=== PATIENT | male | born 1995 | race Caucasian/White ===

== ENCOUNTER 2018-11-09 21:00 | Observation (INO) | payer OTHER ==
[2018-11-09] MEDS ORDERED: ONDANSETRON 4 MG/2 ML VIAL ONE (21:28)
[2018-11-09] MEDS ORDERED: ONDANSETRON 4 MG/2 ML VIAL IVP ONE (21:30)
[2018-11-09] MEDS ORDERED: NS 1,000 ML IV ONE (21:35)
[2018-11-09] MEDS ORDERED: MAG HYDROX/AL HYDROX/SIMETH 30 ML UDCUP PO ONE (21:35)
[2018-11-09] MEDS ORDERED: FAMOTIDINE 20 MG TAB PO ONE (21:35)
[2018-11-09] MEDS ORDERED: TAMSULOSIN HCL 0.4 MG CAP PO ONE (21:35)
[2018-11-09] MEDS ORDERED: LIDOCAINE 2% VISCOUS 15 ML UDCUP PO ONE (21:35)
[2018-11-09] MEDS ORDERED: HYOSCYAMINE SULFATE 0.125 MG TAB PO ONE (21:35)
[2018-11-09 21:48] LABS: PLATELET COUNT 306 10^3/uL (150-400)
--- NOTE | 2018-11-09 21:57 | EDPHY ---
H & P Stated Complaint: Epigastric pain, "i think it gets worse w/greasy food", constipaion Source: Patient Exam Limitations: No limitations - Personal History Current Tetanus Diphtheria and Acellular Pertussis (TDAP): Yes Tetanus Vaccine Date: 2014 - Medical/Surgical History Hx Asthma: No Hx Chronic Respiratory Disease: No Hx Diabetes: No Hx Cardiac Disease: No Hx Renal Disease: No Hx Cirrhosis: No Hx Alcoholism: No Hx HIV/AIDS: No Hx Splenectomy or Spleen Trauma: No Other PMH: Denies - Social History Smoking Status: Never smoked Time Seen by Provider: 11/09/18 21:32 HPI/ROS: HPI: This is a 23-year-old male who presents with Chief Complaint: Epigastric pain, "i think it gets worse w/greasy food", constipation Location: Epigastric Quality: Pain Duration: 2 weeks Signs and Symptoms: no fever, + nausea, + vomiting, no hematemesis, no blood in stool, no abdominal bloating, no diarrhea, no back pain, no urinary symptoms , no testicular/groin pain, no indigestion, no chest pain, no shortness of breath Timin-3 episodes Severity: Moderate Context: 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 Patient reports that he has not been able to have a bowel movement in several days. He denies any fever, urinary symptoms, back pain, diarrhea, blood in stool, hematemesis, testicular groin pain. He reports episodes of indigestion and pain is worsened with greasy foods. He denies regular alcohol or NSAID use. He does not believe that he is under any stress. Denies marijuana use. Modifying Factors: None Comment: ROS: A comprehensive 10 system review of systems is otherwise negative aside from elements mentioned in the history of present illness. MEDICAL/SURGICAL/SOCIAL HISTORY: Medical history: Generally healthy. Does not take any regular medications. Surgical history: Denies Social history: Never smoked. CONSTITUTIONAL: Overweight adult white male, awake and alert, no obvious distress HEENT: Atraumatic and normocephalic, PERRL, EOMI. Wears glasses. Nares patent ; no rhinorrhea; no nasal mucosal edema. Tympanic membranes clear. Oropharynx clear, no exudate and moist pink mucosa. Airway patent. No lymphadenopathy. No meningismus. Cardiovascular: Normal S1/S2, regular rate, regular rhythm, without murmur rub or gallop. PULMONARY/CHEST: Symmetrical and nontender. Clear to auscultation bilaterally. Good air movement. No accessory muscle usage. ABDOMEN: Soft, nondistended, moderate epigastric tenderness, mild right upper quadrant tenderness,, no rebound, no guarding, no peritoneal signs, no masses or organomegaly. No CVAT. Hypoactive bowel sounds x4 quadrants. EXTREMITIES: 2/2 pulses, strength 5/5, no deformities, no clubbing, no cyanosis or edema. NEUROLOGICAL: no focal neuro deficits. GCS 15. SKIN: Warm and dry, no erythema. no rash. Good capillary refill. (Hillary Ferrari) Constitutional: Initial Vital Signs Temperature (C) 37.1 C 11/09/18 21:04 Heart Rate 85 11/09/18 21:04 Respiratory Rate 17 11/09/18 21:04 Blood Pressure 164/111 H 11/09/18 21:04 O2 Sat (%) 96 11/09/18 21:04 O2 Delivery Mode Room Air Allergies/Adverse Reactions: No Known Allergies Allergy (Unverified 11/09/18 21:08) Home Medications: Medication Instructions Recorded NK [No Known Home Meds] 11/09/18 Medical Decision Making - Diagnostics Imaging Results: Imaging Impressions Abdomen Ultrasound 11/09/18 21:36 Impression: Consistent with mild cholecystitis and cholelithiasis. Results discussed with Hillary Ferrari at 23:00 PM. Abdomen X-Ray 11/09/18 21:36 Impression: Negative. ED Course/Re-evaluation: I did not see this patient while he was in the emergency department. However his care was discussed with the PA while the patient was in the department. I agree with treatment plan and management (Bib Torres) Vital signs reviewed and show elevated blood pressure upon arrival. 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 IV access, laboratory studies, abdominal ultrasound, KUB and medications ordered Patient given 1 L normal saline, IV Protonix 40 mg, IV Pepcid 20 mg, IV Zofran 4 mg and GI cocktail 2215: Labs reviewed. No signs of leukocytosis/anemia/platelet dysfunction/DUSTY/ elevated LFTs/electrolyte imbalance/pancreatitis. 2230: Abdominal x-ray my read shows right-sided constipation. No signs of obstruction/free air. Called by Radiology, Dr. Zamudio, who reports ultrasound shows fatty liver, no pancreatitis, gallbladder sludge with 1-2 stones, negative Parson's sign; findings are concerning for early cholecystitis and cholelithiasis. ED decision to consult General surgery. Spoke with Dr. Yao who kindly agrees to admit patient and take his gallbladder out in the morning. NPO status. Given IV Rocephin 2 g IV Flagyl 500 mg. This patient was seen under the supervision of my secondary supervising physician. I evaluated care for this patient independently. Discussed this patient with Dr. Torres who did not see the patient. (Hillary Ferrari) Differential Diagnosis: Abdominal pain including but not limited to appendicitis, cholecystitis, gastritis and urinary tract infection. (Hillary Ferrari) - Data Points Laboratory Results: Laboratory Results 11/09/18 21:24 11/09/18 21:24 11/09/18 11/09/18 21:24 21:24 WBC 7.69 10^3/uL 10^3/uL (3.80-9.50) RBC 5.80 10^6/uL 10^6/uL (4.40-6.38) Hgb 17.5 g/dL g/dL (13.7-17.5) Hct 51.9 % H % (40.0-51.0) MCV 89.5 fL fL (81.5-99.8) MCH 30.2 pg pg (27.9-34.1) MCHC 33.7 g/dL g/dL (32.4-36.7) RDW 12.3 % % (11.5-15.2) Plt Count 306 10^3/uL 10^3/uL (150-400) MPV 8.9 fL fL (8.7-11.7) Neut % (Auto) 66.3 % % (39.3-74.2) Lymph % (Auto) 25.1 % % (15.0-45.0) [place] % (Auto) 6.6 % % (4.5-13.0) Eos % (Auto) 1.0 % % (0.6-7.6) Baso % (Auto) 0.7 % % (0.3-1.7) Nucleat RBC Rel Count 0.0 % % (0.0-0.2) Absolute Neuts (auto) 5.10 10^3/uL 10^3/uL (1.70-6.50) Absolute Lymphs (auto) 1.93 10^3/uL 10^3/uL (1.00-3.00) Absolute Monos (auto) 0.51 10^3/uL 10^3/uL (0.30-0.80) Absolute Eos (auto) 0.08 10^3/uL 10^3/uL (0.03-0.40) Absolute Basos (auto) 0.05 10^3/uL 10^3/uL (0.02-0.10) Absolute Nucleated RBC 0.00 10^3/uL 10^3/uL (0-0.01) Immature Gran % 0.3 % % (0.0-1.1) Immature Gran # 0.02 10^3/uL 10^3/uL (0.00-0.10) Sodium 137 mEq/L mEq/L (135-145) Potassium 3.9 mEq/L mEq/L (3.5-5.2) Chloride 102 mEq/L mEq/L (97-110) Carbon Dioxide 25 mEq/l mEq/l (22-31) Anion Gap 10 mEq/L mEq/L (6-14) BUN 15 mg/dL mg/dL (7-23) Creatinine 1.0 mg/dL mg/dL (0.7-1.3) Estimated GFR > 60 Glucose 126 mg/dL H mg/dL (70-100) Calcium 11.8 mg/dL H mg/dL (8.5-10.4) Phosphorus 3.4 mg/dL mg/dL (2.5-4.5) Total Bilirubin 1.4 mg/dL mg/dL (0.1-1.4) Conjugated Bilirubin 0.5 mg/dL mg/dL (0.0-0.5) Unconjugated Bilirubin 0.9 mg/dL mg/dL (0.0-1.1) AST 36 IU/L IU/L (17-59) ALT 65 IU/L IU/L (21-72) Alkaline Phosphatase 124 IU/L IU/L (38-126) Total Protein 8.1 g/dL g/dL (6.3-8.2) Albumin 5.0 g/dL g/dL (3.5-5.0) Lipase 48 IU/L IU/L (23-300) Medications Given: Metronidazole/Sodium Chloride (Flagyl 500 Mg (Premix)) 100 mls @ 100 mls/hr IV EDNOW ONE PRN Reason: Protocol Stop: 11/10/18 00:09 Last Admin: 11/09/18 23:18 Dose: 100 mls Pantoprazole Sodium (Protonix) 40 mg IV ONCE ONE Stop: 11/10/18 21:36 Last Admin: 11/09/18 22:34 Dose: 40 mg Discontinued Medications Al Hydroxide/Mg Hydroxide (Maalox Susp) 30 ml PO ONCE ONE Stop: 11/09/18 21:36 Last Admin: 11/09/18 22:34 Dose: 30 ml Famotidine (Pepcid) 20 mg PO EDNOW ONE Stop: 11/09/18 21:36 Last Admin: 11/09/18 22:34 Dose: 20 mg Hyoscyamine Sulfate (Levsin, Hyomax-Sl) 0.25 mg PO ONCE ONE Stop: 11/09/18 21:36 Last Admin: 11/09/18 22:34 Dose: 0.25 mg Sodium Chloride (Ns) 1,000 mls @ 0 mls/hr IV EDNOW ONE; Wide Open PRN Reason: Protocol Stop: 11/09/18 21:36 Last Admin: 11/09/18 22:25 Dose: 1,000 mls Lidocaine (Lidocaine 2% Viscous) 15 ml PO ONCE ONE Stop: 11/09/18 21:36 Last Admin: 11/09/18 22:34 Dose: 15 ml Ondansetron HCl (Zofran) 4 mg IVP EDNOW ONE Stop: 11/09/18 21:31 Last Admin: 11/09/18 21:30 Dose: 4 mg Tamsulosin HCl (Flomax) 0.4 mg PO EDNOW ONE Stop: 11/09/18 21:36 Last Admin: 11/09/18 22:26 Dose: Not Given Departure - Departure Disposition: [facility] Acute Clinical Impression: Cholecystitis with cholelithiasis Condition: Fair
[2018-11-09] MEDS ORDERED: PANTOPRAZOLE SODIUM 40 MG VIAL ONE (22:21)
--- NOTE | 2018-11-09 23:51 | PDGENHP ---
History & Physical Chief Complaint: RUQ PAIN History of Present Illness: 2 WEEK HX OF EPIGASTRIC PAIN WITHGREASY FOOD. US SHOWS SLUDGE AND STONES/ LFTs OK/ NONICTERIC. RISKS AND OPTIONS FULLY DISCUSSED/ ADMIT FOR LAP JOHNNIE Pertinent Past, Social, Family History: PMH NO MAJOR PROBLEMS AND NO SURGERY. MEDS NONE. NKA. ROS - 10 PT REVIEW. SOC HX NONSMOKER. FAM HX NONCONTRIB EXCEPT FOR CHOLETHIASIS Relevant Physical Exam: GEN ALERT, HEALTHY 23 MALE, AFEBRILE. HEENT NONICTERIC , PERRLA, NO NODES. CHEST CLEAR. COR RR, NO M. ABD SOFT, MILDLY TENDER RUQ, NO MASSES. GEN OK, NO HERNIAS. EXTREM OK. NEURO PHYSIOLOGIC. PSYCH ALERT, ORIENTED, COOPERATIVE Cardiorespiratory Assessment: IMP: CHOLETHIASIS, POSSIBLE CHOLECYSTITIS. PLAN: ADMIT FOR LAP JOHNNIE
[2018-11-10] MEDS ORDERED: LORazepam 2 MG/ML INJ IVP PRN (00:01)
[2018-11-10] MEDS ORDERED: ONDANSETRON 4 MG/2 ML VIAL IVP PRN ×2 (00:01→14:37)
[2018-11-10] MEDS: D5W 1/2 NS W/ 20 KCl/L 1,000 ML IV SCH ×3 (00:57→23:27)
[2018-11-10] MEDS: HYDROmorphONE/DILAUDID 1 MG/ML INJ IVP PRN ×4 (01:27→23:01)
[2018-11-10 08:05] LABS: PLATELET COUNT 288 10^3/uL (150-400)
[2018-11-10] MEDS ORDERED: LR 1,000 ML IV ONE (12:09)
[2018-11-10] MEDS ORDERED: BUPIVACAINE 0.5% 30 ML SDV ONE (13:55)
[2018-11-10] MEDS ORDERED: ceFAZolin 1 GM/5 ML SYR ONE (13:55)
[2018-11-10] MEDS ORDERED: HEPARIN 1000 UNIT/1 ML MDV ONE (13:55)
[2018-11-10] MEDS ORDERED: MIDAZOLAM 2 MG/2 ML VIAL IVP ONE (14:34)
[2018-11-10] MEDS ORDERED: ACETAMINOPHEN 500 MG TAB PO PRN (14:37)
[2018-11-10] MEDS ORDERED: PROMETHAZINE HCL 25 MG/ML INJ IVP PRN (14:37)
[2018-11-10] MEDS ORDERED: fentaNYL 100 MCG/2 ML INJ IVP PRN (14:37)
[2018-11-10] MEDS ORDERED: HYDROmorphONE/DILAUDID 2 MG/ML INJ IVP PRN (14:37)
[2018-11-10] MEDS ORDERED: PHENYLEPHRINE HCL 100 MCG/ML SYR IVP PRN (14:37)
[2018-11-10] MEDS ORDERED: LR 500 ML IV PRN (14:37)
[2018-11-10] MEDS ORDERED: oxyCODONE IR 5 MG TAB PO PRN (14:37)
[2018-11-10] MEDS ORDERED: HYDROCODONE/APAP 5/325 TAB PO PRN (14:37)
[2018-11-10] MEDS ORDERED: NALOXONE HCL 0.4 MG/ML INJ IVP PRN (14:37)
--- NOTE | 2018-11-10 14:37 | PDANEPAE ---
ANE Past Medical History - Cardiovascular History Hx Hypertension: No Hx Arrhythmias: No Hx Chest Pain: No Hx Coronary Artery / Peripheral Vascular Disease: No Hx CHF / Valvular Disease: No Hx Palpitations: No - Pulmonary History Hx COPD: No Hx Asthma/Reactive Airway Disease: No Hx Recent Upper Respiratory Infection: No Hx Oxygen in Use at Home: No Hx Sleep Apnea: No Sleep Apnea Screening Result - Last Documented: Negative - Endocrine History Hx Diabetes: No Hypothyroid: No Hyperthyroid: No Obesity: no Endocrine History Comment: overweight - Surgical History Prior Surgeries: none ANE Review of Systems Review of Systems: - Exercise capacity Exercise capacity: >=4 METS - Systems Muscolosketal: Reports: neck pain ANE Patient History - Allergies Allergies/Adverse Reactions: No Known Allergies Allergy (Unverified 11/09/18 21:08) - Home Medications Home Medications: NK [No Known Home Meds] 11/09/18 [Last Taken Unknown] - NPO status NPO Since - Liquids (Date): 11/09/18 NPO Since - Liquids (Time): 17:00 NPO Since - Solids (Date): 11/09/18 NPO Since - Solids (Time): 11:00 - Anes Hx Hx Anesthesia Complications (with details): no prior h/o anesthesia - Smoking Hx Smoking Status: Never smoked - Alcohol Use Alcohol Use: Occasionally - Family Anes Hx Family Anes Hx: neg - N/A ANE Labs/Vital Signs - Labs Result Diagrams: 11/10/18 07:50 11/09/18 21:24 - Vital Signs Blood Pressure: 134/93 Heart Rate: 102 Respiratory Rate: 12 O2 Sat (%): 93 Height: 193 cm Weight: 108.86 kg ANE Physical Exam - Airway Neck exam: FROM Mallampati Score: Class 2 Mouth exam: normal dental/mouth exam - Pulmonary Pulmonary: no respiratory distress, no rales or rhonchi, clear to auscultation - Cardiovascular Cardiovascular: regular rate and rhythym, no murmur, rub, or gallop ANE Anesthesia Plan Anesthesia Plan: general endotracheal anesthesia Total IV Anesthesia: No
[2018-11-10] MEDS ORDERED: MIDAZOLAM 2 MG/2 ML VIAL ONE (14:47)
[2018-11-10] MEDS ORDERED: PROPOFOL 200 MG/20 ML VIAL ONE (14:50)
[2018-11-10] MEDS ORDERED: fentaNYL 100 MCG/2 ML INJ ONE (14:50)
[2018-11-10] MEDS ORDERED: REMIFENTANIL HCL 1 MG VIAL ONE (14:50)
[2018-11-10] MEDS ORDERED: ONDANSETRON 4 MG/2 ML VIAL ONE (14:51)
[2018-11-10] MEDS ORDERED: DEXAMETHASONE 4 MG/ML VIAL ONE (14:51)
[2018-11-10] MEDS ORDERED: PROPOFOL/EMULSION 500 MG/50 ML BOTTLE IV ONE (14:51)
[2018-11-10] MEDS ORDERED: ROCURONIUM 50 MG/5 ML VIAL ONE ×2 (14:52→15:44)
[2018-11-10] MEDS ORDERED: LIDOCAINE 2% 5 ML SDV ONE (14:53)
[2018-11-10] MEDS ORDERED: PHENYLEPHRINE HCL 100 MCG/ML SYR ONE ×2 (15:13→15:25)
[2018-11-10] MEDS ORDERED: SUGAMMADEX SODIUM 200 MG/2 ML VIAL IVP ONE (15:55)
[2018-11-10] MEDS ORDERED: KETOROLAC 30 MG/1 ML SDV ONE (15:55)
--- NOTE | 2018-11-10 16:44 | POSTANESTH ---
Post Anesthetic Evaluation Cardiovascular Status: Normal, Stable Respiratory Status: Normal, Stable Level of Consciousness/Mental Status: Can Participate in Eval Pain Control: Adequate, Prn Tx Ordered Nausea/Vomiting Control: Adequate, Prn Tx Ordered Complications Possibly Related to Anesthesia: None Noted
--- NOTE | 2018-11-10 17:41 | POSTOPPROG ---
Post Op Note Date of Operation: 11/10/18 Surgeon: Xander Yao Roof Fitter: Alysha Paige Anesthesiologist: Morris Nichole Anesthesia: GET(General Endotracheal) Pre-op Diagnosis: cholelithiasis, acute cholecystitis Post-op Diagnosis: same, with gangrenous gallbladder Procedure: lap jaden Findings: large stones, necrotic edematous GB c dark black bile Inf/Abcess present in the surg proc area at time of surgery?: Yes Depth: Organ Space EBL: 50-100 Complications: none Specimen(s): gallbladder to path and swab for culture
[2018-11-10] MEDS ORDERED: PANTOPRAZOLE SODIUM 40 MG VIAL IV ONE (21:35)
[2018-11-11] MEDS: HYDROmorphONE/DILAUDID 1 MG/ML INJ IVP PRN ×2 (00:58→03:46)
[2018-11-11] MEDS: D5W 1/2 NS W/ 20 KCl/L 1,000 ML IV SCH (07:21)
[2018-11-11] MEDS: OXYCODONE/APAP 5/325 TAB PO PRN ×2 (08:55→13:54)
--- NOTE | 2018-11-11 09:06 | SOAPPROG ---
SOAP Progress Note Assessment/Plan: Assessment/Plan: 23 Y M POD#1 s/p lap jaden. Acute gangrenous cholecystitis, cholelithiasis. Regular diet. Will plan to d/c to home later today p IV abx c oral abx if tolerates diet. Will need Vit D supplementation and recheck labs as outpatient for likely hyperparathyroidism. S: some pain at top incision. no n/v. had some jello. has not been oob. O: alert, nad ncat, no jaundice ctab rrr abd soft, inc cdi, +BS. 11/11/18 09:03 Objective: Vital Signs Temp Pulse Resp BP Pulse Ox 37.5 C 98 16 130/79 H 91 L 11/11/18 04:46 11/11/18 04:46 11/11/18 04:46 11/11/18 04:46 11/11/18 04:46 Microbiology 11/10/18 15:49 Gram Stain - Final Gallbladder - Eswab Laboratory Results 11/10/18 07:50 11/10/18 11/11/18 11/12/18 05:59 05:59 05:59 Intake Total 1750 4175 Output Total 880 Balance 1750 7245 ICD10 Worksheet Patient Problems: Problems Problem Status Onset Cholecystitis with cholelithiasis Acute
[2018-11-11 12:42] VITALS: BP 114/66
--- NOTE | 2018-11-12 05:43 | GOP ---
DATE OF OPERATION: 11/10/2018 SURGEON: Xander Yao MD SUBSTITUTE CROSSING GUARD: MARIELA Arreaga PREOPERATIVE DIAGNOSIS: Acute cholecystitis. POSTOPERATIVE DIAGNOSIS: Acute cholecystitis. PROCEDURE PERFORMED: Laparoscopic cholecystectomy. FINDINGS: The patient was found to have a markedly distended, inflamed gallbladder with a marked tabitha unt of retroperitoneal and periduodenal edema and inflammation. Ducts were small. DESCRIPTION OF PROCEDURE: The patient was taken to the operating room, where he received a satisfact ory general endotracheal anesthesia. He was placed in supine position, prepped and draped in usual s terile fashion. Periumbilical incision was made. A Veress needle inserted. Pneumoperitoneum was established. Troca r was introduced. Laparoscope introduced. Good visualization was obtained. Three other trocars wer e placed in the upper abdomen under direct vision. The gallbladder was quite markedly inflamed and d ifficult to grasp. It was elevated up. Adhesions were taken down exposing the entire length of the gallbladder. Finally, the cystic triangle dissection was done and was quite careful to avoid any inj ury to the common bile duct. The cystic duct was multiply hemoclipped and divided, as was the cystic artery. The peritoneum around the gallbladder was incised, and the gallbladder was dissected free i n the bed of the hepatic fossa and extracted through the upper midline port site. This required sign ificant enlargement of the port site to facilitate removal of the gallbladder, which was seen to cont ain multiple large stones and some purulent material. Gallbladder was then cultured. The wound was irrigated. Hemostasis was assured. Trocars removed under direct vision. Trocar sites were closed with 0 Vicryl for the fascia, 4-0 Monocryl subcuticular stitch for the skin. All layers infiltrated with 0.5% Marcaine. He tolerated the procedure well, was taken to the recovery room in good condition. COMPLICATIONS: There were no complications. DRAINS: No drain was used. /[id number]/MODL
== END 2018-11-11 14:30 | disposition home or self-care (01) ==
LOC: INTOOBSV 23:11 → FOB 11-10 00:40
PROVIDERS: ADMIT Surgery; ATTEND Surgery
PROC: 0FT44ZZ Resection of Gallbladder, Percutaneous Endoscopic Approach (ICD-10-PCS; principal; 2018-11-09)
DX: K80.00 Calculus of gallbladder with acute cholecystitis without obstruction (principal)
CPT/HCPCS: 47562; 74018; 76705; 96365; 96367; 96375; 96376; 99285; G0378; J0696; J1100; J1170; J1885; J2060; J2250; J2370; J2405; J2704; J3010